=== PATIENT | female | born 1975 | race Caucasian/White ===

== ENCOUNTER 2016-09-23 18:23 | Emergency (ER) | payer SELFPAY ==
[~2016-09-23] VITALS: Ht 162.6 cm; Wt 68.0 kg
[2016-09-23 18:57] VITALS: BP 110/87
[2016-09-23] MEDS ORDERED: methylPREDNISolone SOD SUCC 125 MG/2 ML VL IM ONE (19:30)
[2016-09-23] MEDS ORDERED: IPRATROPIUM BROM 0.5 MG/2.5ML INH SOL NEB ONE (19:30)
[2016-09-23] MEDS ORDERED: ALBUTEROL SULF 2.5 MG/0.5ML(0.5%) NEB SOLN NEB ONE (19:30)
== END 2016-09-23 20:29 | disposition home or self-care (01) ==
LOC: ER 18:34
DX: J45.901 Unspecified asthma with (acute) exacerbation (principal); F17.210 Nicotine dependence, cigarettes, uncomplicated
CPT/HCPCS: 94640; 96372; 99283; J2930

== ENCOUNTER 2016-09-28 23:21 | Emergency (ER) | payer OTHER ==
[~2016-09-28] VITALS: Ht 162.6 cm; Wt 68.0 kg
[2016-09-28 23:27] VITALS: BP 114/80
== END 2016-09-29 00:53 | disposition left against medical advice (07) ==
LOC: ER 23:23
DX: R51 Headache (principal); Y09 Assault by unspecified means; Y99.9 Unspecified external cause status; Y92.89 Other specified places as the place of occurrence of the external cause; Z53.21 Procedure and treatment not carried out due to patient leaving prior to being seen by health care provider

== ENCOUNTER 2016-11-13 17:50 | Emergency (ER) | payer SELFPAY ==
[~2016-11-13] VITALS: Ht 172.7 cm; Wt 81.6 kg
[2016-11-13 17:58] VITALS: BP 120/80
== END 2016-11-13 21:29 | disposition left against medical advice (07) ==
LOC: EDBD 17:50 → ER 17:50
DX: R51 Headache (principal); M54.2 Cervicalgia; Z53.21 Procedure and treatment not carried out due to patient leaving prior to being seen by health care provider; Y08.89XA Assault by other specified means, initial encounter; Y93.89 Activity, other specified; Y99.8 Other external cause status; Y92.89 Other specified places as the place of occurrence of the external cause

== ENCOUNTER → 2019-04-22 | Emergency (ER) | payer MEDICAID | END | disposition left against medical advice (07) | LOC: ER 01:50 | DX: M54.5 Low back pain (principal); Z53.21 Procedure and treatment not carried out due to patient leaving prior to being seen by health care provider ==

== ENCOUNTER 2019-11-09 18:32 | Inpatient (IN) | payer MEDICAID ==
[~2019-11-09] VITALS: Ht 162.6 cm; Wt 59.0 kg
[2019-11-09 20:18] LABS: Basophils # (auto) 0.1 10 ^3/uL (0-0.2); Basophils % (auto) 1.3 % (0.0-2.0); Eosinophils # (auto) 0.2 10 ^3/uL (0-0.8); Hemoglobin 13.8 g/dL (12.2-16.2); Lymphocytes # (auto) 2.7 10 ^3/uL (0.4-5.4); Lymphocytes % (auto) 25.6 % (10.0-50.0); Mean Corpuscular Hemoglobin 29.6 pg (28.0-32.0); Mean Corpuscular Hgb Conc. 32.9 g/dL (32.0-36.0); Mean Corpuscular Volume 90.1 fL (80.0-100.0); Monocytes # (auto) 0.8 10 ^3/uL (0-1.3); Monocytes % (auto) 7.1 % (0.0-12.0); Neutrophils # (auto) 6.8 10 ^3/uL (1.6-8.6); Platelet Count (auto) 303 10^3/uL (140-450); Red Blood Cells 4.66 10^6/uL (4.0-5.20); Red Cell Distribution Width 14.8 % (11.8-14.3); White Blood Cell 10.6 10^3/uL (4.4-10.8)
[2019-11-09 20:32] LABS: INR 1.13 (0.9-1.15); Partial Thromboplastin Time 28.1 sec (23.64-32.05)
[2019-11-09 20:35] LABS: Albumin 2.7 g/dL (3.4-5.0); Calcium 8.2 mg/dL (8.5-10.1); Potassium 3.7 mmol/L (3.5-5.1)
[2019-11-09 20:42] LABS: BUN/Creatinine Ratio 22.1; Bilirubin, Total 0.4 mg/dL (0.2-1.0); Total Protein 6.1 g/dL (6.4-8.2)
[2019-11-09] MEDS ORDERED: IPRATROPIUM BROM 0.5 MG/2.5ML INH SOL NEB ONE (23:30)
[2019-11-09] MEDS ORDERED: FUROSEMIDE 20 MG/2 ML VIAL IV ONE (23:30)
[2019-11-09] MEDS ORDERED: ALBUTEROL SULF 2.5 MG/0.5ML(0.5%) NEB SOLN NEB ONE (23:30)
[2019-11-09] MEDS ORDERED: methylPREDNISolone SOD SUCC 125 MG/2 ML VL IV ONE (23:30)
[2019-11-10] MEDS ORDERED: SODIUM CHLORIDE 0.9% 1,000 ML IV SCH (00:08)
[2019-11-10] MEDS ORDERED: MORPHINE SULF INJ 2 MG/ML SYRINGE 1ML IV PRN (00:15)
[2019-11-10] MEDS ORDERED: HYDROcodone-ACET 5/325MG TAB PO PRN (00:15)
[2019-11-10] MEDS ORDERED: ALBUTEROL SULF 2.5 MG/0.5ML(0.5%) NEB SOLN NEB PRN (00:15)
[2019-11-10] MEDS ORDERED: ONDANSETRON HCL 4 MG/2 ML VIAL IV PRN (00:15)
[2019-11-10] MEDS ORDERED: DOCUSATE SOD 100 MG CAP PO PRN (00:15)
[2019-11-10] MEDS ORDERED: NITROGLYCERIN 0.4 MG SL TAB SL PRN (00:15)
[2019-11-10] MEDS ORDERED: DEXTROSE (50%) 50ML SYRG IV PRN (00:15)
[2019-11-10] MEDS ORDERED: MORPHINE SULFATE 4 MG/ML SYR/VIAL IV PRN (00:15)
[2019-11-10] MEDS ORDERED: IPRATROPIUM BROM 0.5 MG/2.5ML INH SOL NEB PRN (00:15)
[2019-11-10] MEDS ORDERED: ACETAMINOPHEN 325 MG TAB PO PRN (00:15)
[2019-11-10 00:22] VITALS: BP 91/64
[2019-11-10] MEDS ORDERED: SODIUM CHLORIDE 0.9% 1,000 ML IV ONE ×2 (01:00→03:30)
[2019-11-10] MEDS ORDERED: METOPROLOL TARTRATE 1MG/1ML-5ML VIAL IV ONE (03:08)
[2019-11-10] MEDS ORDERED: METOPROLOL TARTRATE 1MG/1ML-5ML VIAL IV SCH (03:30)
[2019-11-10] MEDS: ACCU-CHEK COMFORT CURVE STRIP VI SCH ×2 (04:00→08:25)
[2019-11-10] MEDS: InsuLIN REG 1unit/0.01ml Soln (100units/ml) SC SCH ×2 (04:00→08:26)
[2019-11-10] MEDS ORDERED: NOREPINEPHRINE 8 MG/250ML KIT 250 ML IV SCH (04:13)
[2019-11-10] MEDS ORDERED: NOREPINEPHRINE 8 MG/250ML KIT 250 ML IV ONE (04:15)
--- NOTE | 2019-11-10 08:15 | NUR ---
Respiratory note: PT REFUSED ABG TO BE DONE. EXPLAINED WHY IT WAS IMPORTANT TO DO AND WHAT RESULTS WOULD TELL US. PT STILL REFUSED AND WANTED TO LEAVE.
[2019-11-10 09:45] VITALS: BP 103/81
[2019-11-10] MEDS ORDERED: FUROSEMIDE 40 MG/4 ML VIAL IV SCH (10:00)
[2019-11-10] MEDS ORDERED: methylPREDNISolone SOD SUCC 125 MG/2 ML VL IV SCH (10:00)
== END 2019-11-10 11:25 | disposition left against medical advice (07) | DRG 198 ==
LOC: EDBD 18:32 → ER 18:32 → TELE 18:33
PROVIDERS: ADMIT Hospitalist; ATTEND Internal Medicine
DX: R07.89 Other chest pain (principal); I25.2 Old myocardial infarction; I50.43 Acute on chronic combined systolic (congestive) and diastolic (congestive) heart failure; I95.9 Hypotension, unspecified; I42.9 Cardiomyopathy, unspecified; J45.901 Unspecified asthma with (acute) exacerbation; I48.91 Unspecified atrial fibrillation; E11.9 Type 2 diabetes mellitus without complications; F17.210 Nicotine dependence, cigarettes, uncomplicated; Z53.29 Procedure and treatment not carried out because of patient's decision for other reasons; Z88.0 Allergy status to penicillin
CPT/HCPCS: 36415; 36600; 71045; 80053; 82140; 82805; 82962; 83880; 84443; 84484; 85025; 85379; 85610; 85730; 93005; 94640; 96361; 96374; 96375; G0378

== ENCOUNTER 2019-12-02 12:30 | Inpatient (IN) | payer MEDICAID, SELFPAY ==
[~2019-12-02] VITALS: Ht 165.1 cm; Wt 63.8 kg
[2019-12-02] MEDS ORDERED: MIDAZOLAM DRIP 50 mg/50mL 50 ML IV ONE (13:08)
[2019-12-02] MEDS ORDERED: SUCCINYLCHOLINE CHLORIDE 20 MG/ML 10ML VIAL IV ONE ×2 (13:09→13:45)
[2019-12-02] MEDS ORDERED: ETOMIDATE (2MG/ML) 20ML VIAL IV ONE ×2 (13:09→13:45)
[2019-12-02] MEDS ORDERED: LORazepam 2MG/ML-1ML VIAL ONE (13:12)
[2019-12-02] MEDS: MIDAZOLAM DRIP 50 mg/50mL 50 ML IV SCH (13:38)
[2019-12-02 13:40] LABS: Basophils # (auto) 0.1 10 ^3/uL (0-0.2); Basophils % (auto) 0.5 % (0.0-2.0); Eosinophils # (auto) 0 10 ^3/uL (0-0.8); Eosinophils % (auto) 0.3 % (0.0-7.0); Hematocrit 38.4 % (36.0-46.0); Hemoglobin 12.8 g/dL (12.2-16.2); Lymphocytes # (auto) 2.5 10 ^3/uL (0.4-5.4); Lymphocytes % (auto) 17.4 % (10.0-50.0); Mean Corpuscular Hemoglobin 30.2 pg (28.0-32.0); Mean Corpuscular Hgb Conc. 33.4 g/dL (32.0-36.0); Mean Corpuscular Volume 90.5 fL (80.0-100.0); Monocytes # (auto) 1.2 10 ^3/uL (0-1.3); Neutrophils # (auto) 10.6 10 ^3/uL (1.6-8.6); Neutrophils % (auto) 73.8 % (37.0-80.0); Platelet Count (auto) 221 10^3/uL (140-450); Red Blood Cells 4.25 10^6/uL (4.0-5.20); White Blood Cell 14.4 10^3/uL (4.4-10.8)
[2019-12-02 13:52] LABS: Albumin 2.4 g/dL (3.4-5.0); Calcium 8.8 mg/dL (8.5-10.1); Potassium 4.1 mmol/L (3.5-5.1)
[2019-12-02 13:55] LABS: Lactic Acid w/Reflex 2.2 mmol/L (0.4-2.0)
[2019-12-02 13:56] LABS: BUN/Creatinine Ratio 19.3; Bilirubin, Total 1.8 mg/dL (0.2-1.0); Total Protein 6.4 g/dL (6.4-8.2)
[2019-12-02] MEDS ORDERED: AZITHROMYCIN 500MG/ 250ML 250 ML IV ONE (15:00)
[2019-12-02] MEDS ORDERED: ACETAMINOPHEN 650 MG RECT SUPP PR ONE (15:00)
[2019-12-02] MEDS ORDERED: levoFLOXacin 500MG 100 ML IV ONE (15:00)
[2019-12-02] MEDS ORDERED: MIDAZOLAM DRIP 50 mg/50mL 50 ML IV SCH (15:08)
[2019-12-02] MEDS ORDERED: fentaNYL Drip 2500mCg/250mlNS 250 ML IV ONE (15:11)
[2019-12-02] MEDS ORDERED: ACETAMINOPHEN 500 MG TAB PO PRN (15:15)
[2019-12-02] MEDS ORDERED: MORPHINE SULF INJ 2 MG/ML SYRINGE 1ML IV PRN (15:15)
[2019-12-02] MEDS ORDERED: NITROGLYCERIN 0.4 MG SL TAB SL PRN (15:15)
[2019-12-02] MEDS ORDERED: DOXYCYCLINE 100MG/250ML 250 ML IV SCH (15:30)
[2019-12-02 15:45] VITALS: BP 121/96
[2019-12-02 15:45] LABS: Magnesium 1.9 mg/dL (1.6-2.6)
[2019-12-02 15:53] LABS: INR 1.2 (0.9-1.15); Partial Thromboplastin Time 26.2 sec (23.64-32.05)
[2019-12-02 15:54] LABS: Lactate Dehydrogenase 643 U/L (84-246)
[2019-12-02 16:02] LABS: CRP High Sensitivity > 19.0 mg/dL (< 0.3)
[2019-12-02] MEDS: fentaNYL Drip 2500mCg/250mlNS 250 ML IV SCH (16:23)
[2019-12-02 16:25] VITALS: BP 103/52
[2019-12-02 17:09] LABS: Urine Amorphous Crystal MANY /hpf (None Seen); Urine Bacteria NONE SEEN /hpf (None Seen); Urine Blood Negative /uL (Negative); Urine Mucus FEW (None Seen); Urine Specific Gravity 1.023 (1.001-1.035)
[2019-12-02 17:10] LABS: Urine WBC 0-1 /hpf (0 - 5)
[2019-12-02] MEDS: cefTRIAXone 1GM/50ML D5W 50 ML IV SCH (17:41)
[2019-12-02] MEDS: NOREPINEPHRINE 8 MG/250ML KIT 250 ML IV SCH (17:43)
[2019-12-02] MEDS ORDERED: ADENOSINE 6 MG/2 ML INJ IV ONE ×2 (18:34→18:45)
[2019-12-02 18:55] VITALS: BP 91/67
[2019-12-02 20:30] VITALS: BP 108/78
[2019-12-02] MEDS: LEVALBUTEROL HCL 1.25 MG/3 ML NEB NEB SCH (21:48)
[2019-12-02] MEDS: IPRATROPIUM BROM 0.5 MG/2.5ML INH SOL NEB SCH (21:48)
[2019-12-02 21:58] VITALS: BP 93/68
[2019-12-02] MEDS ORDERED: ALBUTEROL SULF HFA 90MCG INH 200DOSE IN SCH (22:00)
[2019-12-02 23:55] VITALS: BP 104/81
[2019-12-03] VITALS (65 sets, daily range): BP systolic 42–157; BP diastolic 56–134
[2019-12-03] MEDS: IPRATROPIUM BROM 0.5 MG/2.5ML INH SOL NEB SCH ×2 (08:04→22:52)
[2019-12-03] MEDS: LEVALBUTEROL HCL 1.25 MG/3 ML NEB NEB SCH ×2 (08:04→22:52)
[2019-12-03] MEDS: NOREPINEPHRINE 8 MG/250ML KIT 250 ML IV SCH (08:30)
[2019-12-03] MEDS: fentaNYL Drip 2500mCg/250mlNS 250 ML IV SCH (08:30)
[2019-12-03] MEDS: MIDAZOLAM DRIP 50 mg/50mL 50 ML IV SCH (08:30)
[2019-12-03 09:05] LABS: Basophils # (auto) 0 10 ^3/uL (0-0.2); Basophils % (auto) 0.3 % (0.0-2.0); Eosinophils # (auto) 0.5 10 ^3/uL (0-0.8); Eosinophils % (auto) 3.3 % (0.0-7.0); Hematocrit 38.8 % (36.0-46.0); Hemoglobin 12.4 g/dL (12.2-16.2); Lymphocytes # (auto) 3.2 10 ^3/uL (0.4-5.4); Lymphocytes % (auto) 23.3 % (10.0-50.0); Mean Corpuscular Hemoglobin 28.9 pg (28.0-32.0); Mean Corpuscular Hgb Conc. 31.9 g/dL (32.0-36.0); Mean Corpuscular Volume 90.5 fL (80.0-100.0); Monocytes # (auto) 0.9 10 ^3/uL (0-1.3); Monocytes % (auto) 6.3 % (0.0-12.0); Neutrophils # (auto) 9.3 10 ^3/uL (1.6-8.6); Neutrophils % (auto) 66.8 % (37.0-80.0); Platelet Count (auto) 217 10^3/uL (140-450); Red Blood Cells 4.29 10^6/uL (4.0-5.20); Red Cell Distribution Width 15.6 % (11.8-14.3); White Blood Cell 13.9 10^3/uL (4.4-10.8)
[2019-12-03] MEDS: cefTRIAXone 1GM/50ML D5W 50 ML IV SCH (09:13)
[2019-12-03 09:21] LABS: Albumin 2.1 g/dL (3.4-5.0); Calcium 8.7 mg/dL (8.5-10.1); Potassium 4.1 mmol/L (3.5-5.1)
[2019-12-03 09:29] LABS: Bilirubin, Total 1.2 mg/dL (0.2-1.0); Total Protein 6.2 g/dL (6.4-8.2)
[2019-12-03] MEDS ORDERED: AZITHROMYCIN DIHYD 500 MG VIAL IV SCH (10:00)
[2019-12-03] MEDS ORDERED: ASCORBIC ACID 500 MG TAB PO SCH (10:00)
[2019-12-03] MEDS: ENOXAPARIN SOD 40 MG/0.4 ML SYRINGE SC SCH (10:00)
[2019-12-03] MEDS ORDERED: AZITHROMYCIN 500MG/ 250ML 250 ML IV SCH (10:00)
[2019-12-03] MEDS: ASCORBIC ACID 500 MG TAB PO SCH (10:57)
[2019-12-03] MEDS ORDERED: VANCOMYCIN PER PHARMACY 0 MG IV SCH (11:00)
[2019-12-03] MEDS ORDERED: AMIODARONE HCL (50 MG/ ML) 3 ML VIAL IV ONE (11:04)
[2019-12-03] MEDS ORDERED: AMIODARONE 450mg/250ml AE 250 ML IV ONE (11:05)
[2019-12-03] MEDS ORDERED: AMIODARONE 450mg/250ml AE 250 ML IV SCH ×2 (11:11→17:11)
[2019-12-03] MEDS ORDERED: AMIODARONE HCL 150 MG in D5W 5% 100 ML IV ONE (11:15)
[2019-12-03] MEDS: ZINC SULFATE 220mg CAP or TAB PO SCH (11:33)
[2019-12-03] MEDS ORDERED: EPINEPHrine HCL 250 ML IV ONE (12:30)
[2019-12-03] MEDS ORDERED: MAGNESIUM SULFATE 1GM/100ML 100 ML IV ONE (15:00)
[2019-12-03] MEDS: VANCOMYCIN 1GM/250ML 250 ML IV SCH (15:10)
[2019-12-03] MEDS ORDERED: MEROPENEM 1GM IVPB 100 ML IV ONE (15:15)
[2019-12-03] MEDS ORDERED: ASPirin-EC 81 mg tab PO ONE (15:15)
[2019-12-03] MEDS ORDERED: FUROSEMIDE 20 MG/2 ML VIAL IV ONE (15:15)
[2019-12-03] MEDS ORDERED: CHOLECALCIFEROL (VITD3) 1,000IU=25mCg TAB PO ONE (15:15)
[2019-12-03] MEDS: NOREPINEPHRINE BITARTRATE 16 MG in SODIUM CHL 0.9% 250 ML IV SCH (16:46)
[2019-12-03] MEDS: DIGOXIN (250MCG/ML) 2 ML AMPULE IV ONE ×2 (18:37→18:41)
[2019-12-03] MEDS ORDERED: DIGOXIN (250MCG/ML) 2 ML AMPULE IV ONE (19:00)
[2019-12-03] MEDS: MEROPENEM 1GM IVPB 100 ML IV SCH (22:00)
[2019-12-03 22:35] LABS: Lactic Acid w/Reflex 3.7 mmol/L (0.4-2.0)
[2019-12-03 22:37] LABS: Albumin 1.9 g/dL (3.4-5.0); BUN/Creatinine Ratio 17.6; Calcium 7.3 mg/dL (8.5-10.1); Magnesium 1.7 mg/dL (1.6-2.6); Potassium 4.4 mmol/L (3.5-5.1)
[2019-12-03 22:39] LABS: INR 1.46 (0.9-1.15); Partial Thromboplastin Time 27.1 sec (23.64-32.05)
[2019-12-03 22:45] LABS: Bilirubin, Total 1.7 mg/dL (0.2-1.0); Total Protein 5.2 g/dL (6.4-8.2)
[2019-12-04] VITALS (105 sets, daily range): BP systolic 77–161; BP diastolic 47–103
[2019-12-04] MEDS: VANCOMYCIN 1GM/250ML 250 ML IV SCH ×2 (00:30→12:29)
[2019-12-04 00:51] LABS: Basophils # (auto) 0.1 10 ^3/uL (0-0.2); Basophils % (auto) 0.5 % (0.0-2.0); Eosinophils # (auto) 0.3 10 ^3/uL (0-0.8); Eosinophils % (auto) 1.6 % (0.0-7.0); Hematocrit 36.6 % (36.0-46.0); Hemoglobin 11.6 g/dL (12.2-16.2); Lymphocytes # (auto) 3.4 10 ^3/uL (0.4-5.4); Lymphocytes % (auto) 19.5 % (10.0-50.0); Mean Corpuscular Hemoglobin 28.5 pg (28.0-32.0); Mean Corpuscular Hgb Conc. 31.6 g/dL (32.0-36.0); Mean Corpuscular Volume 90.4 fL (80.0-100.0); Monocytes % (auto) 11.1 % (0.0-12.0); Neutrophils # (auto) 11.9 10 ^3/uL (1.6-8.6); Neutrophils % (auto) 67.3 % (37.0-80.0); Nucleated Red Blood Cells % 0.1 %; Platelet Count (auto) 202 10^3/uL (140-450); Red Blood Cells 4.05 10^6/uL (4.0-5.20); Red Cell Distribution Width 15.4 % (11.8-14.3); White Blood Cell 17.7 10^3/uL (4.4-10.8)
[2019-12-04] MEDS ORDERED: AMIO200T33 PO (01:54)
[2019-12-04] MEDS ORDERED: ENAL2.5T2 PO (01:54)
[2019-12-04] MEDS ORDERED: PANT40TA2 PO (01:54)
[2019-12-04] MEDS ORDERED: NITR0.4S29 SL (01:54)
[2019-12-04] MEDS ORDERED: POTA-220 PO (01:54)
[2019-12-04] MEDS ORDERED: METO25TA93 PO (01:54)
[2019-12-04] MEDS ORDERED: CLOP75TA28 PO (01:54)
[2019-12-04] MEDS ORDERED: ATOR20TA50 PO (01:54)
[2019-12-04] MEDS ORDERED: FURO40TA4 PO (01:54)
[2019-12-04] MEDS ORDERED: IPRAAER6 IN (01:54)
[2019-12-04] MEDS ORDERED: GLIP5TAB12 PO (01:54)
[2019-12-04] MEDS ORDERED: AMIODARONE HCL 900 MG IV ONE (02:18)
[2019-12-04] MEDS ORDERED: MAGNESIUM SULFATE 1GM/100ML 200 ML IV ONE (02:31)
[2019-12-04] MEDS: MAGNESIUM SULFATE 1GM/100ML 100 ML IV SCH ×2 (02:40→03:30)
[2019-12-04 04:31] LABS: Basophils # (auto) 0.1 10 ^3/uL (0-0.2); Basophils % (auto) 0.8 % (0.0-2.0); Eosinophils # (auto) 0.3 10 ^3/uL (0-0.8); Hematocrit 39.3 % (36.0-46.0); Hemoglobin 12.6 g/dL (12.2-16.2); Lymphocytes # (auto) 2.4 10 ^3/uL (0.4-5.4); Lymphocytes % (auto) 15.5 % (10.0-50.0); Mean Corpuscular Hemoglobin 28.7 pg (28.0-32.0); Mean Corpuscular Hgb Conc. 31.9 g/dL (32.0-36.0); Mean Corpuscular Volume 90.1 fL (80.0-100.0); Monocytes # (auto) 1.5 10 ^3/uL (0-1.3); Monocytes % (auto) 9.6 % (0.0-12.0); Neutrophils # (auto) 11.2 10 ^3/uL (1.6-8.6); Neutrophils % (auto) 72.1 % (37.0-80.0); Nucleated Red Blood Cells % 0.1 %; Platelet Count (auto) 152 10^3/uL (140-450); Red Blood Cells 4.37 10^6/uL (4.0-5.20); Red Cell Distribution Width 15.3 % (11.8-14.3); White Blood Cell 15.6 10^3/uL (4.4-10.8)
[2019-12-04 04:32] LABS: Albumin 1.7 g/dL (3.4-5.0); Calcium 7.7 mg/dL (8.5-10.1); Magnesium 2.3 mg/dL (1.6-2.6); Potassium 3.5 mmol/L (3.5-5.1)
[2019-12-04 04:36] LABS: BUN/Creatinine Ratio 12.5; Bilirubin, Total 2.2 mg/dL (0.2-1.0); Total Protein 5.7 g/dL (6.4-8.2)
[2019-12-04] MEDS: LEVALBUTEROL HCL 1.25 MG/3 ML NEB NEB SCH ×3 (07:01→22:08)
[2019-12-04] MEDS: IPRATROPIUM BROM 0.5 MG/2.5ML INH SOL NEB SCH ×3 (07:01→22:08)
[2019-12-04] MEDS ORDERED: FUROSEMIDE 20 MG/2 ML VIAL IV SCH (10:00)
[2019-12-04] MEDS ORDERED: AZITHROMYCIN 500MG/ 250ML 250 ML IV SCH (10:00)
[2019-12-04] MEDS: PANTOPRAZOLE 40 MG/10 ML VIAL INJ IV SCH (10:09)
[2019-12-04] MEDS: MEROPENEM 1GM IVPB 100 ML IV SCH ×2 (10:09→22:00)
[2019-12-04] MEDS: ASCORBIC ACID 500 MG TAB PO SCH (10:10)
[2019-12-04] MEDS: ENOXAPARIN SOD 40 MG/0.4 ML SYRINGE SC SCH (10:10)
[2019-12-04] MEDS: CHOLECALCIFEROL (VITD3) 1,000IU=25mCg TAB PO SCH (10:10)
[2019-12-04] MEDS: ASPirin-EC 81 mg tab PO SCH (10:11)
[2019-12-04] MEDS: ZINC SULFATE 220mg CAP or TAB PO SCH (10:12)
[2019-12-04] MEDS: fentaNYL Drip 2500mCg/250mlNS 250 ML IV SCH (10:29)
[2019-12-04] MEDS: NOREPINEPHRINE BITARTRATE 16 MG in SODIUM CHL 0.9% 250 ML IV SCH (10:35)
[2019-12-04] MEDS: MIDAZOLAM DRIP 50 mg/50mL 50 ML IV SCH ×3 (11:18→18:51)
[2019-12-04] MEDS ORDERED: POTASSIUM EFFERVESENT TAB 25 MEQ GT ONE (12:00)
[2019-12-04] MEDS ORDERED: FUROSEMIDE 20 MG/2 ML VIAL IV ONE (12:00)
[2019-12-04] MEDS ORDERED: SODIUM BICARBONATE 50ML VIAL 50 ML in SOD CHL 0.45% 1,000 ML IV ONE (12:15)
[2019-12-04 13:33] LABS: Amphetamine Screen, Urine NEGATIVE (NEGATIVE); Barbiturate Scree,Urine NEGATIVE (NEGATIVE); Benzodiazephine Screen, Urine POSITIVE (NEGATIVE); Cannabinoid Screen, Urine NEGATIVE (NEGATIVE); Cocaine Screen, Urine NEGATIVE (NEGATIVE); Opiate Scree,Urine NEGATIVE (NEGATIVE); Phencyclidine Screen, Urine NEGATIVE (NEGATIVE)
[2019-12-04] MEDS ORDERED: IOHEXOL 350 MG/ML 100ML IJ ONE (13:38)
[2019-12-04 13:52] LABS: Hepatitis B Surface Antibody Negative
[2019-12-04 14:31] LABS: Hepatitis A Total Antibody Negative
[2019-12-04] MEDS: ACETAMINOPHEN 650 mg PER 20 mL UD GT PRN (14:31)
[2019-12-04] MEDS ORDERED: PROPOFOL 100 ML IV ONE (14:35)
[2019-12-04] MEDS: PROPOFOL 100 ML IV SCH (15:15)
[2019-12-04 16:04] LABS: Hepatitis B Core Total AB Negative
[2019-12-04 16:05] LABS: Hepatitis B Surface Antigen Negative (Negative); Hepatitis C Antibody Negative (Negative)
[2019-12-04] MEDS: FUROSEMIDE 20 MG/2 ML VIAL IV SCH (18:43)
[2019-12-04] MEDS: ATORVASTATIN 20 MG TAB PO SCH (22:00)
[2019-12-04] MEDS ORDERED: AMIODARONE 450mg/250ml AE 250 ML IV SCH (22:25)
[2019-12-05] VITALS (104 sets, daily range): BP systolic 75–151; BP diastolic 36–99
[2019-12-05 03:52] LABS: Basophils # (auto) 0.1 10 ^3/uL (0-0.2); Basophils % (auto) 0.6 % (0.0-2.0); Eosinophils # (auto) 0.1 10 ^3/uL (0-0.8); Eosinophils % (auto) 0.5 % (0.0-7.0); Hematocrit 38.6 % (36.0-46.0); Hemoglobin 12.7 g/dL (12.2-16.2); Lymphocytes # (auto) 1.2 10 ^3/uL (0.4-5.4); Mean Corpuscular Hemoglobin 29.2 pg (28.0-32.0); Mean Corpuscular Hgb Conc. 32.8 g/dL (32.0-36.0); Monocytes # (auto) 1.4 10 ^3/uL (0-1.3); Monocytes % (auto) 8.5 % (0.0-12.0); Neutrophils # (auto) 14.3 10 ^3/uL (1.6-8.6); Neutrophils % (auto) 83.4 % (37.0-80.0); Platelet Count (auto) 170 10^3/uL (140-450); Red Blood Cells 4.34 10^6/uL (4.0-5.20); Red Cell Distribution Width 15.6 % (11.8-14.3); White Blood Cell 17.1 10^3/uL (4.4-10.8)
[2019-12-05 04:15] LABS: Albumin 1.6 g/dL (3.4-5.0); Calcium 7.7 mg/dL (8.5-10.1); Magnesium 1.5 mg/dL (1.6-2.6); Potassium 3.6 mmol/L (3.5-5.1)
[2019-12-05 04:23] LABS: BUN/Creatinine Ratio 12.3; Bilirubin, Total 4.6 mg/dL (0.2-1.0); Total Protein 5.7 g/dL (6.4-8.2)
[2019-12-05] MEDS: FUROSEMIDE 20 MG/2 ML VIAL IV SCH ×2 (06:00→19:03)
[2019-12-05] MEDS ORDERED: FUROSEMIDE INJECTION 10 ML ONE (06:31)
[2019-12-05] MEDS: LEVALBUTEROL HCL 1.25 MG/3 ML NEB NEB SCH ×3 (06:58→22:01)
[2019-12-05] MEDS: IPRATROPIUM BROM 0.5 MG/2.5ML INH SOL NEB SCH ×3 (06:58→22:01)
[2019-12-05] MEDS: fentaNYL Drip 2500mCg/250mlNS 250 ML IV SCH (09:25)
[2019-12-05] MEDS: ENOXAPARIN SOD 40 MG/0.4 ML SYRINGE SC SCH (09:59)
[2019-12-05] MEDS: PANTOPRAZOLE 40 MG/10 ML VIAL INJ IV SCH (09:59)
[2019-12-05] MEDS: MEROPENEM 1GM IVPB 100 ML IV SCH ×2 (09:59→18:20)
[2019-12-05] MEDS: ASPirin-EC 81 mg tab PO SCH (09:59)
[2019-12-05] MEDS: CHOLECALCIFEROL (VITD3) 1,000IU=25mCg TAB PO SCH (10:00)
[2019-12-05] MEDS: ASCORBIC ACID 500 MG TAB PO SCH (10:00)
[2019-12-05] MEDS ORDERED: MAGNESIUM SULFATE 1GM/100ML 100 ML IV ONE ×2 (10:45→13:30)
[2019-12-05] MEDS: PROPOFOL 100 ML IV SCH (12:01)
[2019-12-05] MEDS: VANCOMYCIN 1GM/250ML 250 ML IV SCH ×3 (12:11→22:00)
[2019-12-05] MEDS ORDERED: TPN PER PHARMACY 0 ML IV SCH (12:45)
[2019-12-05] MEDS: NOREPINEPHRINE BITARTRATE 16 MG in SODIUM CHL 0.9% 250 ML IV SCH (16:37)
[2019-12-05] MEDS: ACETAMINOPHEN 650 mg PER 20 mL UD GT PRN (16:58)
[2019-12-05] MEDS ORDERED: AMIODARONE 450mg/250ml AE 250 ML IV ONE (18:30)
[2019-12-05 18:31] LABS: Magnesium 1.9 mg/dL (1.6-2.6); Potassium 3.3 mmol/L (3.5-5.1)
[2019-12-05] MEDS: MAGNESIUM SULFATE 1GM/100ML 100 ML IV SCH ×2 (18:50→20:05)
[2019-12-05] MEDS: POTASSIUM CHL 20MEQ/100ML 100 ML IV SCH ×2 (19:00→20:05)
[2019-12-05] MEDS ORDERED: POTASSIUM CHL 20MEQ/100ML 200 ML IV ONE (19:02)
[2019-12-05] MEDS ORDERED: TPN PER PHARMACY IV NR ×8 (20:00)
[2019-12-05] MEDS ORDERED: AMIODARONE HCL 200 MG TAB PO SCH (22:00)
[2019-12-05] MEDS: ATORVASTATIN 20 MG TAB PO SCH (22:00)
[2019-12-06] VITALS (92 sets, daily range): BP systolic 83–133; BP diastolic 47–101
[2019-12-06] MEDS ORDERED: DEXTROSE (50%) 50ML SYRG IV SCH
[2019-12-06] MEDS: MEROPENEM 1GM IVPB 100 ML IV SCH ×3 (02:00→16:58)
[2019-12-06 04:12] LABS: Basophils # (auto) 0 10 ^3/uL (0-0.2); Basophils % (auto) 0.2 % (0.0-2.0); Eosinophils # (auto) 0 10 ^3/uL (0-0.8); Eosinophils % (auto) 0.1 % (0.0-7.0); Hematocrit 44.7 % (36.0-46.0); Hemoglobin 14.9 g/dL (12.2-16.2); Lymphocytes # (auto) 0.8 10 ^3/uL (0.4-5.4); Mean Corpuscular Hemoglobin 29.4 pg (28.0-32.0); Mean Corpuscular Hgb Conc. 33.4 g/dL (32.0-36.0); Monocytes # (auto) 0.6 10 ^3/uL (0-1.3); Monocytes % (auto) 4.6 % (0.0-12.0); Neutrophils # (auto) 12.2 10 ^3/uL (1.6-8.6); Neutrophils % (auto) 89.1 % (37.0-80.0); Nucleated Red Blood Cells % 0.1 %; Platelet Count (auto) 160 10^3/uL (140-450); Red Blood Cells 5.07 10^6/uL (4.0-5.20); White Blood Cell 13.7 10^3/uL (4.4-10.8)
[2019-12-06 04:31] LABS: Albumin 1.6 g/dL (3.4-5.0); BUN/Creatinine Ratio 14.1; Calcium 7.5 mg/dL (8.5-10.1); Magnesium 2.1 mg/dL (1.6-2.6)
[2019-12-06 04:36] LABS: Bilirubin, Total 4.4 mg/dL (0.2-1.0); Total Protein 5.8 g/dL (6.4-8.2)
[2019-12-06 04:43] LABS: Phosphorus 1.6 mg/dL (2.5-4.90); Pre Albumin 4.2 mg/dL (20.0-40.0)
[2019-12-06 04:54] LABS: Potassium 2.9 mmol/L (3.5-5.1)
[2019-12-06] MEDS ORDERED: POTASSIUM CHL 20MEQ/100ML 100 ML IV ONE ×3 (05:12→08:31)
[2019-12-06] MEDS: FUROSEMIDE 20 MG/2 ML VIAL IV SCH ×2 (06:00→17:40)
[2019-12-06] MEDS: ACCU-CHEK COMFORT CURVE STRIP VI SCH ×4 (06:00→17:25)
[2019-12-06] MEDS: IPRATROPIUM BROM 0.5 MG/2.5ML INH SOL NEB SCH ×3 (06:10→22:32)
[2019-12-06] MEDS: LEVALBUTEROL HCL 1.25 MG/3 ML NEB NEB SCH ×3 (06:10→22:32)
[2019-12-06] MEDS: InsuLIN REG 1unit/0.01ml Soln (100units/ml) SC SCH ×4 (06:30→17:26)
[2019-12-06] MEDS ORDERED: AMIODARONE 450mg/250ml AE 250 ML IV ONE ×3 (06:37→21:41)
[2019-12-06] MEDS ORDERED: MAGNESIUM SULFATE 1GM/100ML 100 ML IV ONE (08:30)
[2019-12-06] MEDS: VANCOMYCIN 1GM/250ML 250 ML IV SCH ×2 (09:03→18:46)
[2019-12-06] MEDS: ASPirin-EC 81 mg tab PO SCH (09:42)
[2019-12-06] MEDS: ENOXAPARIN SOD 40 MG/0.4 ML SYRINGE SC SCH (09:43)
[2019-12-06] MEDS: PANTOPRAZOLE 40 MG/10 ML VIAL INJ IV SCH (09:43)
[2019-12-06] MEDS: ASCORBIC ACID 500 MG TAB PO SCH (09:43)
[2019-12-06] MEDS: LIDOCAINE 4MG/ML IV SOLN 500 ML IV SCH (09:44)
[2019-12-06] MEDS: CHOLECALCIFEROL (VITD3) 1,000IU=25mCg TAB PO SCH (09:57)
[2019-12-06] MEDS: MIDAZOLAM DRIP 50 mg/50mL 50 ML IV SCH ×2 (09:58→18:46)
[2019-12-06] MEDS: POTASSIUM CHL 20MEQ/100ML 100 ML IV SCH ×6 (10:00→18:46)
[2019-12-06] MEDS: fentaNYL Drip 2500mCg/250mlNS 250 ML IV SCH ×2 (10:00→13:16)
[2019-12-06] MEDS ORDERED: SODIUM PHOSPH 24MEQ(18MMOL) IN NS 100 ML IV ONE (11:00)
[2019-12-06] MEDS ORDERED: AMIODARONE 450mg/250ml AE 250 ML IV SCH (13:14)
[2019-12-06] MEDS: PROPOFOL 100 ML IV SCH (14:37)
[2019-12-06] MEDS: NOREPINEPHRINE BITARTRATE 16 MG in SODIUM CHL 0.9% 250 ML IV SCH (16:00)
[2019-12-06] MEDS ORDERED: TPN PER PHARMACY IV NR ×9 (20:00)
[2019-12-06] MEDS: ATORVASTATIN 20 MG TAB PO SCH (22:09)
[2019-12-07] VITALS (95 sets, daily range): BP systolic 70–135; BP diastolic 37–91
[2019-12-07] MEDS: VANCOMYCIN 1GM/250ML 250 ML IV SCH ×3 (02:01→18:21)
[2019-12-07] MEDS: MEROPENEM 1GM IVPB 100 ML IV SCH ×3 (02:01→17:38)
[2019-12-07] MEDS ORDERED: NOREPINEPHRINE 8 MG/250ML KIT 250 ML IV ONE (04:07)
[2019-12-07 04:38] LABS: Basophils # (auto) 0 10 ^3/uL (0-0.2); Basophils % (auto) 0.2 % (0.0-2.0); Eosinophils # (auto) 0.4 10 ^3/uL (0-0.8); Eosinophils % (auto) 2.3 % (0.0-7.0); Hematocrit 36.3 % (36.0-46.0); Hemoglobin 11.8 g/dL (12.2-16.2); Lymphocytes # (auto) 1.8 10 ^3/uL (0.4-5.4); Lymphocytes % (auto) 10.8 % (10.0-50.0); Mean Corpuscular Hemoglobin 29.5 pg (28.0-32.0); Mean Corpuscular Hgb Conc. 32.6 g/dL (32.0-36.0); Mean Corpuscular Volume 90.6 fL (80.0-100.0); Monocytes # (auto) 1.7 10 ^3/uL (0-1.3); Monocytes % (auto) 9.7 % (0.0-12.0); Neutrophils # (auto) 13.1 10 ^3/uL (1.6-8.6); Nucleated Red Blood Cells % 0.1 %; Platelet Count (auto) 210 10^3/uL (140-450); Red Blood Cells 4.01 10^6/uL (4.0-5.20); White Blood Cell 17.1 10^3/uL (4.4-10.8)
[2019-12-07 04:42] LABS: Albumin 1.3 g/dL (3.4-5.0); Calcium 7.7 mg/dL (8.5-10.1); Magnesium 2.4 mg/dL (1.6-2.6); Potassium 4.1 mmol/L (3.5-5.1)
[2019-12-07 04:50] LABS: BUN/Creatinine Ratio 24.1; Bilirubin, Total 2.7 mg/dL (0.2-1.0); Phosphorus 3.9 mg/dL (2.5-4.90); Total Protein 5.3 g/dL (6.4-8.2)
[2019-12-07] MEDS: InsuLIN REG 1unit/0.01ml Soln (100units/ml) SC SCH ×4 (06:00→17:34)
[2019-12-07] MEDS: ACCU-CHEK COMFORT CURVE STRIP VI SCH ×4 (06:00→17:31)
[2019-12-07] MEDS: FUROSEMIDE 20 MG/2 ML VIAL IV SCH ×2 (06:00→18:21)
[2019-12-07] MEDS ORDERED: PHENYLEPHRINE IV 250 ML IV ONE ×3 (06:03→11:54)
[2019-12-07] MEDS: LEVALBUTEROL HCL 1.25 MG/3 ML NEB NEB SCH ×3 (06:10→21:56)
[2019-12-07] MEDS: IPRATROPIUM BROM 0.5 MG/2.5ML INH SOL NEB SCH ×3 (06:11→21:56)
[2019-12-07] MEDS ORDERED: AMIODARONE 450mg/250ml AE 250 ML IV ONE (06:55)
[2019-12-07] MEDS: LIDOCAINE 4MG/ML IV SOLN 500 ML IV SCH (09:30)
[2019-12-07] MEDS: PANTOPRAZOLE 40 MG/10 ML VIAL INJ IV SCH (09:39)
[2019-12-07] MEDS: ASPirin-EC 81 mg tab PO SCH (09:39)
[2019-12-07] MEDS: CHOLECALCIFEROL (VITD3) 1,000IU=25mCg TAB PO SCH (09:40)
[2019-12-07] MEDS: ENOXAPARIN SOD 40 MG/0.4 ML SYRINGE SC SCH (09:40)
[2019-12-07] MEDS: ASCORBIC ACID 500 MG TAB PO SCH (09:40)
[2019-12-07] MEDS: PHENYLEPHRINE IV 250 ML IV SCH (13:02)
[2019-12-07] MEDS: PROPOFOL 100 ML IV SCH (14:37)
[2019-12-07] MEDS: fentaNYL Drip 2500mCg/250mlNS 250 ML IV SCH (15:08)
[2019-12-07] MEDS: NOREPINEPHRINE BITARTRATE 16 MG in SODIUM CHL 0.9% 250 ML IV SCH ×2 (17:16→23:01)
[2019-12-07] MEDS ORDERED: VANCOMYCIN 1GM/250ML 250 ML IV ONE (19:00)
[2019-12-07] MEDS: AMIODARONE 450mg/250ml AE 250 ML IV SCH (19:25)
[2019-12-07] MEDS ORDERED: TPN PER PHARMACY IV NR ×9 (20:00)
[2019-12-07] MEDS: MUPIROCIN 2% OINT 15gm or 22gm EACHNOSTRI SCH (21:53)
[2019-12-07] MEDS: ATORVASTATIN 20 MG TAB PO SCH (22:21)
[2019-12-08] VITALS (105 sets, daily range): BP systolic 83–119; BP diastolic 45–81
[2019-12-08] MEDS: InsuLIN REG 1unit/0.01ml Soln (100units/ml) SC SCH ×4 (00:22→18:00)
[2019-12-08] MEDS: MEROPENEM 1GM IVPB 100 ML IV SCH ×3 (01:30→18:25)
[2019-12-08] MEDS: VANCOMYCIN 1GM/250ML 250 ML IV SCH ×3 (02:27→21:30)
[2019-12-08 04:56] LABS: Basophils # (auto) 0 10 ^3/uL (0-0.2); Basophils % (auto) 0.2 % (0.0-2.0); Eosinophils # (auto) 0.6 10 ^3/uL (0-0.8); Eosinophils % (auto) 5.5 % (0.0-7.0); Hemoglobin 11.2 g/dL (12.2-16.2); Lymphocytes # (auto) 1.5 10 ^3/uL (0.4-5.4); Lymphocytes % (auto) 13.5 % (10.0-50.0); Mean Corpuscular Hemoglobin 29.6 pg (28.0-32.0); Mean Corpuscular Hgb Conc. 32.8 g/dL (32.0-36.0); Mean Corpuscular Volume 90.3 fL (80.0-100.0); Monocytes # (auto) 1.1 10 ^3/uL (0-1.3); Monocytes % (auto) 9.9 % (0.0-12.0); Neutrophils % (auto) 70.9 % (37.0-80.0); Platelet Count (auto) 177 10^3/uL (140-450); Red Blood Cells 3.77 10^6/uL (4.0-5.20); Red Cell Distribution Width 15.7 % (11.8-14.3); White Blood Cell 11.4 10^3/uL (4.4-10.8)
[2019-12-08 05:09] LABS: Potassium 4.3 mmol/L (3.5-5.1)
[2019-12-08 05:21] LABS: Albumin 1.3 g/dL (3.4-5.0); BUN/Creatinine Ratio 33.3; Calcium 7.4 mg/dL (8.5-10.1); Magnesium 1.9 mg/dL (1.6-2.6); Phosphorus 2.3 mg/dL (2.5-4.90); Total Protein 5.3 g/dL (6.4-8.2)
[2019-12-08] MEDS: FUROSEMIDE 20 MG/2 ML VIAL IV SCH ×2 (05:42→18:25)
[2019-12-08] MEDS: ACCU-CHEK COMFORT CURVE STRIP VI SCH ×4 (05:54→18:23)
[2019-12-08] MEDS: IPRATROPIUM BROM 0.5 MG/2.5ML INH SOL NEB SCH ×3 (06:10→22:47)
[2019-12-08] MEDS: LEVALBUTEROL HCL 1.25 MG/3 ML NEB NEB SCH ×3 (06:10→22:47)
[2019-12-08] MEDS ORDERED: SODIUM PHOSPH 24MEQ(18MMOL) IN NS 100 ML IV ONE (08:00)
[2019-12-08] MEDS: LIDOCAINE 4MG/ML IV SOLN 500 ML IV SCH (09:30)
[2019-12-08] MEDS: PHENYLEPHRINE IV 250 ML IV SCH ×2 (09:50→21:19)
[2019-12-08] MEDS: PANTOPRAZOLE 40 MG/10 ML VIAL INJ IV SCH (09:51)
[2019-12-08] MEDS: CHOLECALCIFEROL (VITD3) 1,000IU=25mCg TAB PO SCH (09:51)
[2019-12-08] MEDS: ASCORBIC ACID 500 MG TAB PO SCH (09:51)
[2019-12-08] MEDS: ASPirin-EC 81 mg tab PO SCH (09:52)
[2019-12-08] MEDS: ENOXAPARIN SOD 40 MG/0.4 ML SYRINGE SC SCH (09:52)
[2019-12-08] MEDS: MUPIROCIN 2% OINT 15gm or 22gm EACHNOSTRI SCH ×2 (09:53→21:30)
[2019-12-08] MEDS: ASPirin 81 mg TAB PO SCH (10:05)
[2019-12-08] MEDS: AMIODARONE 450mg/250ml AE 250 ML IV SCH ×2 (12:38→22:48)
[2019-12-08] MEDS ORDERED: LIDOCAINE HCL 100 MG/5ML (2%) SYRG INJ IV ONE (13:37)
[2019-12-08] MEDS: MIDAZOLAM DRIP 50 mg/50mL 50 ML IV SCH (13:44)
[2019-12-08 14:02] LABS: Calcium 7.3 mg/dL (8.5-10.1); Magnesium 1.9 mg/dL (1.6-2.6); Potassium 4.1 mmol/L (3.5-5.1)
[2019-12-08 14:04] LABS: BUN/Creatinine Ratio 33.3
[2019-12-08] MEDS: PROPOFOL 100 ML IV SCH (14:37)
[2019-12-08] MEDS: fentaNYL Drip 2500mCg/250mlNS 250 ML IV SCH (15:08)
[2019-12-08] MEDS ORDERED: TPN PER PHARMACY IV NR ×9 (20:00)
[2019-12-08] MEDS: ATORVASTATIN 20 MG TAB PO SCH (21:30)
[2019-12-08] MEDS: NOREPINEPHRINE BITARTRATE 16 MG in SODIUM CHL 0.9% 250 ML IV SCH (22:53)
[2019-12-09] VITALS (104 sets, daily range): BP systolic 86–134; BP diastolic 51–83
[2019-12-09] MEDS: ACCU-CHEK COMFORT CURVE STRIP VI SCH ×4 (00:20→17:09)
[2019-12-09] MEDS: InsuLIN REG 1unit/0.01ml Soln (100units/ml) SC SCH ×4 (00:23→17:29)
[2019-12-09] MEDS: MEROPENEM 1GM IVPB 100 ML IV SCH ×2 (01:36→11:18)
[2019-12-09] MEDS: PHENYLEPHRINE IV 250 ML IV SCH ×2 (05:39→11:59)
[2019-12-09] MEDS: FUROSEMIDE 20 MG/2 ML VIAL IV SCH ×2 (06:21→17:09)
[2019-12-09 06:32] LABS: Basophils # (auto) 0.1 10 ^3/uL (0-0.2); Basophils % (auto) 0.7 % (0.0-2.0); Eosinophils # (auto) 0.3 10 ^3/uL (0-0.8); Eosinophils % (auto) 2.6 % (0.0-7.0); Hematocrit 34.2 % (36.0-46.0); Hemoglobin 11.3 g/dL (12.2-16.2); Lymphocytes # (auto) 1.3 10 ^3/uL (0.4-5.4); Lymphocytes % (auto) 11.5 % (10.0-50.0); Mean Corpuscular Hemoglobin 29.3 pg (28.0-32.0); Mean Corpuscular Hgb Conc. 33.1 g/dL (32.0-36.0); Mean Corpuscular Volume 88.5 fL (80.0-100.0); Monocytes # (auto) 1.1 10 ^3/uL (0-1.3); Neutrophils # (auto) 8.4 10 ^3/uL (1.6-8.6); Neutrophils % (auto) 75.2 % (37.0-80.0); Platelet Count (auto) 224 10^3/uL (140-450); Red Blood Cells 3.87 10^6/uL (4.0-5.20); White Blood Cell 11.2 10^3/uL (4.4-10.8)
[2019-12-09] MEDS: IPRATROPIUM BROM 0.5 MG/2.5ML INH SOL NEB SCH ×3 (06:33→21:17)
[2019-12-09] MEDS: LEVALBUTEROL HCL 1.25 MG/3 ML NEB NEB SCH ×3 (06:33→21:17)
[2019-12-09 06:53] LABS: Albumin 1.3 g/dL (3.4-5.0); Calcium 7.9 mg/dL (8.5-10.1); Magnesium 2.1 mg/dL (1.6-2.6); Potassium 3.9 mmol/L (3.5-5.1)
[2019-12-09 06:56] LABS: BUN/Creatinine Ratio 32.6; Bilirubin, Total 1.6 mg/dL (0.2-1.0); Phosphorus 2.9 mg/dL (2.5-4.90); Total Protein 5.8 g/dL (6.4-8.2)
[2019-12-09] MEDS: ASPirin 81 mg TAB PO SCH (10:00)
[2019-12-09] MEDS: PANTOPRAZOLE 40 MG/10 ML VIAL INJ IV SCH (10:00)
[2019-12-09] MEDS: CHOLECALCIFEROL (VITD3) 1,000IU=25mCg TAB PO SCH (10:00)
[2019-12-09] MEDS: ASCORBIC ACID 500 MG TAB PO SCH (10:00)
[2019-12-09] MEDS: VANCOMYCIN 1GM/250ML 250 ML IV SCH (11:18)
[2019-12-09] MEDS: MUPIROCIN 2% OINT 15gm or 22gm EACHNOSTRI SCH ×2 (11:18→21:57)
[2019-12-09] MEDS: ENOXAPARIN SOD 40 MG/0.4 ML SYRINGE SC SCH (11:19)
[2019-12-09] MEDS: fentaNYL Drip 2500mCg/250mlNS 250 ML IV SCH ×2 (11:59→15:37)
[2019-12-09] MEDS: PROPOFOL 100 ML IV SCH ×3 (11:59→16:00)
[2019-12-09] MEDS: MIDAZOLAM DRIP 50 mg/50mL 50 ML IV SCH (11:59)
[2019-12-09] MEDS: AMIODARONE 450mg/250ml AE 250 ML IV SCH ×2 (12:00→13:17)
[2019-12-09] MEDS ORDERED: levoFLOXacin 750MG 150 ML IV ONE (12:30)
[2019-12-09] MEDS ORDERED: POTASSIUM EFFERVESENT TAB 25 MEQ GT ONE (12:30)
[2019-12-09] MEDS: TPN PER PHARMACY IV NR ×8 (19:56)
[2019-12-09] MEDS: ATORVASTATIN 20 MG TAB PO SCH (21:57)
[2019-12-10] VITALS (102 sets, daily range): BP systolic 78–113; BP diastolic 41–84
[2019-12-10] MEDS: ACCU-CHEK COMFORT CURVE STRIP VI SCH ×4 (00:12→18:45)
[2019-12-10] MEDS: InsuLIN REG 1unit/0.01ml Soln (100units/ml) SC SCH ×4 (00:12→18:45)
[2019-12-10 04:13] LABS: Basophils # (auto) 0.1 10 ^3/uL (0-0.2); Basophils % (auto) 0.8 % (0.0-2.0); Eosinophils # (auto) 0.2 10 ^3/uL (0-0.8); Eosinophils % (auto) 1.5 % (0.0-7.0); Hematocrit 34.9 % (36.0-46.0); Hemoglobin 11.7 g/dL (12.2-16.2); Lymphocytes % (auto) 13.8 % (10.0-50.0); Mean Corpuscular Hemoglobin 29.5 pg (28.0-32.0); Mean Corpuscular Hgb Conc. 33.4 g/dL (32.0-36.0); Mean Corpuscular Volume 88.4 fL (80.0-100.0); Monocytes # (auto) 1.2 10 ^3/uL (0-1.3); Monocytes % (auto) 8.5 % (0.0-12.0); Neutrophils # (auto) 10.7 10 ^3/uL (1.6-8.6); Neutrophils % (auto) 75.4 % (37.0-80.0); Nucleated Red Blood Cells % 0.1 %; Platelet Count (auto) 259 10^3/uL (140-450); Red Blood Cells 3.95 10^6/uL (4.0-5.20); Red Cell Distribution Width 15.7 % (11.8-14.3); White Blood Cell 14.2 10^3/uL (4.4-10.8)
[2019-12-10 04:27] LABS: Potassium 3.8 mmol/L (3.5-5.1)
[2019-12-10 04:29] LABS: INR 1.13 (0.9-1.15)
[2019-12-10 04:36] LABS: Albumin 1.5 g/dL (3.4-5.0); BUN/Creatinine Ratio 37.7; Bilirubin, Total 1.4 mg/dL (0.2-1.0); Calcium 8.2 mg/dL (8.5-10.1); Magnesium 2.3 mg/dL (1.6-2.6); Phosphorus 3.4 mg/dL (2.5-4.90)
[2019-12-10] MEDS: FUROSEMIDE 20 MG/2 ML VIAL IV SCH (05:49)
[2019-12-10] MEDS: IPRATROPIUM BROM 0.5 MG/2.5ML INH SOL NEB SCH ×4 (06:31→22:32)
[2019-12-10] MEDS: LEVALBUTEROL HCL 1.25 MG/3 ML NEB NEB SCH ×4 (06:31→22:32)
[2019-12-10] MEDS: ASCORBIC ACID 500 MG TAB PO SCH (10:29)
[2019-12-10] MEDS: MUPIROCIN 2% OINT 15gm or 22gm EACHNOSTRI SCH ×2 (10:29→21:01)
[2019-12-10] MEDS: ASPirin 81 mg TAB PO SCH (10:29)
[2019-12-10] MEDS: ENOXAPARIN SOD 40 MG/0.4 ML SYRINGE SC SCH (10:29)
[2019-12-10] MEDS: PANTOPRAZOLE 40 MG/10 ML VIAL INJ IV SCH (10:29)
[2019-12-10] MEDS: levoFLOXacin 750MG 150 ML IV SCH (10:29)
[2019-12-10] MEDS: POTASSIUM EFFERVESENT TAB 25 MEQ GT SCH (10:30)
[2019-12-10] MEDS ORDERED: VANCOMYCIN 1GM/250ML 250 ML IV SCH (11:00)
[2019-12-10] MEDS ORDERED: AMIODARONE HCL 200 MG TAB NG ONE (14:00)
[2019-12-10] MEDS: fentaNYL Drip 2500mCg/250mlNS 250 ML IV SCH (18:00)
[2019-12-10] MEDS: NOREPINEPHRINE BITARTRATE 16 MG in SODIUM CHL 0.9% 250 ML IV SCH (18:00)
[2019-12-10] MEDS: FUROSEMIDE 100 MG/10ML VIAL IV SCH (18:00)
[2019-12-10] MEDS ORDERED: TPN PER PHARMACY IV NR ×10 (20:00)
[2019-12-10] MEDS: TPN PER PHARMACY IV NR ×8 (20:08)
[2019-12-10] MEDS: ATORVASTATIN 20 MG TAB PO SCH (21:03)
[2019-12-10] MEDS: AMIODARONE HCL 200 MG TAB NG SCH (21:03)
[2019-12-10] MEDS: AMIODARONE 450mg/250ml AE 250 ML IV SCH (21:03)
[2019-12-11] VITALS (96 sets, daily range): BP systolic 71–129; BP diastolic 29–81
[2019-12-11] MEDS: ACCU-CHEK COMFORT CURVE STRIP VI SCH ×3 (00:07→12:00)
[2019-12-11 03:53] LABS: Hematocrit 36.2 % (36.0-46.0); Hemoglobin 11.7 g/dL (12.2-16.2); Mean Corpuscular Hemoglobin 28.9 pg (28.0-32.0); Mean Corpuscular Hgb Conc. 32.2 g/dL (32.0-36.0); Mean Corpuscular Volume 89.7 fL (80.0-100.0); Platelet Count (auto) 349 10^3/uL (140-450); Red Blood Cells 4.04 10^6/uL (4.0-5.20); Red Cell Distribution Width 15.8 % (11.8-14.3); White Blood Cell 12.7 10^3/uL (4.4-10.8)
[2019-12-11 04:11] LABS: Basophils % (manual) 0 (0.0-2.0); Blast Cells 0; Metamyelocytes % 0; Myelocytes % 0; Promyelocytes % 0; Reactive Lymphocytes 0
[2019-12-11 04:54] LABS: Band Neutrophils % (manual) 1; Eosinophils % (manual) 5 (0-7); Lymphocytes % (manual) 23 (10.0-50.0); Monocytes % (manual) 11 (0-12)
[2019-12-11 05:19] LABS: Albumin 1.7 g/dL (3.4-5.0); BUN/Creatinine Ratio 44.1; Calcium 8.3 mg/dL (8.5-10.1); Magnesium 2.1 mg/dL (1.6-2.6); Potassium 4.4 mmol/L (3.5-5.1)
[2019-12-11 05:22] LABS: Phosphorus 4.4 mg/dL (2.5-4.90); Total Protein 6.3 g/dL (6.4-8.2)
[2019-12-11 05:57] LABS: Pre Albumin 17.3 mg/dL (20.0-40.0)
[2019-12-11] MEDS: InsuLIN REG 1unit/0.01ml Soln (100units/ml) SC SCH ×3 (06:00→12:00)
[2019-12-11] MEDS: LEVALBUTEROL HCL 1.25 MG/3 ML NEB NEB SCH ×3 (06:07→22:21)
[2019-12-11] MEDS: IPRATROPIUM BROM 0.5 MG/2.5ML INH SOL NEB SCH ×3 (06:07→22:21)
[2019-12-11] MEDS: FUROSEMIDE 100 MG/10ML VIAL IV SCH ×2 (06:18→18:00)
[2019-12-11] MEDS: PROPOFOL 100 ML IV SCH (06:35)
[2019-12-11] MEDS ORDERED: DexMEDEtomidine 400 MCG in D5W 5% 96 ML IV SCH (09:27)
[2019-12-11] MEDS: MUPIROCIN 2% OINT 15gm or 22gm EACHNOSTRI SCH ×2 (10:52→22:25)
[2019-12-11] MEDS: POTASSIUM EFFERVESENT TAB 25 MEQ GT SCH (10:52)
[2019-12-11] MEDS: AMIODARONE HCL 200 MG TAB NG SCH ×2 (10:53→22:25)
[2019-12-11] MEDS: PANTOPRAZOLE 40 MG/10 ML VIAL INJ IV SCH (10:53)
[2019-12-11] MEDS: levoFLOXacin 750MG 150 ML IV SCH (10:53)
[2019-12-11] MEDS: ASCORBIC ACID 500 MG TAB PO SCH (10:54)
[2019-12-11] MEDS: ASPirin 81 mg TAB PO SCH (10:54)
[2019-12-11] MEDS: ENOXAPARIN SOD 40 MG/0.4 ML SYRINGE SC SCH (10:54)
[2019-12-11] MEDS: AMIODARONE 450mg/250ml AE 250 ML IV SCH (13:25)
[2019-12-11] MEDS: NOREPINEPHRINE BITARTRATE 16 MG in SODIUM CHL 0.9% 250 ML IV SCH (16:46)
[2019-12-11] MEDS ORDERED: TPN PER PHARMACY IV NR ×8 (20:00)
[2019-12-11] MEDS ORDERED: ALBUMIN 5% 250 ML IV ONE (22:15)
[2019-12-11] MEDS: ATORVASTATIN 20 MG TAB PO SCH (22:25)
[2019-12-12] VITALS (86 sets, daily range): BP systolic 64–125; BP diastolic 29–75
[2019-12-12] MEDS: IPRATROPIUM BROM 0.5 MG/2.5ML INH SOL NEB SCH ×3 (06:27→22:11)
[2019-12-12] MEDS: LEVALBUTEROL HCL 1.25 MG/3 ML NEB NEB SCH ×3 (06:27→22:11)
[2019-12-12] MEDS: FUROSEMIDE 100 MG/10ML VIAL IV SCH ×2 (06:31→18:04)
[2019-12-12] MEDS ORDERED: DIGOXIN (250MCG/ML) 2 ML AMPULE IV ONE ×2 (08:45→09:15)
[2019-12-12] MEDS: ASCORBIC ACID 500 MG TAB PO SCH (09:17)
[2019-12-12] MEDS: ASPirin 81 mg TAB PO SCH (09:17)
[2019-12-12] MEDS: ENOXAPARIN SOD 40 MG/0.4 ML SYRINGE SC SCH (09:17)
[2019-12-12] MEDS: AMIODARONE HCL 200 MG TAB NG SCH ×2 (09:17→21:00)
[2019-12-12] MEDS: MUPIROCIN 2% OINT 15gm or 22gm EACHNOSTRI SCH (09:17)
[2019-12-12] MEDS: POTASSIUM EFFERVESENT TAB 25 MEQ GT SCH (09:17)
[2019-12-12 09:39] LABS: BUN/Creatinine Ratio 40.3; Calcium 8.8 mg/dL (8.5-10.1); Magnesium 2.1 mg/dL (1.6-2.6); Potassium 3.3 mmol/L (3.5-5.1)
[2019-12-12] MEDS: PANTOPRAZOLE 40 MG/10 ML VIAL INJ IV SCH (09:41)
[2019-12-12] MEDS: levoFLOXacin 750MG 150 ML IV SCH (09:42)
[2019-12-12] MEDS ORDERED: POTASSIUM CHL 20 Meq TABLET PO ONE (14:00)
[2019-12-12] MEDS: NOREPINEPHRINE BITARTRATE 16 MG in SODIUM CHL 0.9% 250 ML IV SCH (16:46)
[2019-12-12] MEDS ORDERED: LORazepam 2MG/ML-1ML VIAL IV PRN (18:30)
[2019-12-12] MEDS ORDERED: METOPROLOL SUCCINATE XL 50 MG TAB PO ONE (19:30)
[2019-12-12] MEDS: POTASSIUM CHL 20 Meq TABLET PO SCH (21:00)
[2019-12-12] MEDS: ATORVASTATIN 20 MG TAB PO SCH (21:01)
[2019-12-13] VITALS (43 sets, daily range): BP systolic 78–114; BP diastolic 44–80
[2019-12-13 03:36] LABS: Basophils # (auto) 0 10 ^3/uL (0-0.2); Basophils % (auto) 0.4 % (0.0-2.0); Eosinophils # (auto) 0.1 10 ^3/uL (0-0.8); Eosinophils % (auto) 1.1 % (0.0-7.0); Hematocrit 40.2 % (36.0-46.0); Hemoglobin 13.2 g/dL (12.2-16.2); Lymphocytes # (auto) 1.9 10 ^3/uL (0.4-5.4); Lymphocytes % (auto) 15.6 % (10.0-50.0); Mean Corpuscular Hemoglobin 28.9 pg (28.0-32.0); Mean Corpuscular Hgb Conc. 32.9 g/dL (32.0-36.0); Mean Corpuscular Volume 87.7 fL (80.0-100.0); Monocytes # (auto) 1.2 10 ^3/uL (0-1.3); Monocytes % (auto) 9.6 % (0.0-12.0); Neutrophils % (auto) 73.3 % (37.0-80.0); Platelet Count (auto) 404 10^3/uL (140-450); Red Blood Cells 4.58 10^6/uL (4.0-5.20); Red Cell Distribution Width 15.6 % (11.8-14.3); White Blood Cell 12.3 10^3/uL (4.4-10.8)
[2019-12-13 03:54] LABS: Albumin 2.3 g/dL (3.4-5.0)
[2019-12-13 03:57] LABS: BUN/Creatinine Ratio 46.5; Bilirubin, Total 1.3 mg/dL (0.2-1.0); Total Protein 7.2 g/dL (6.4-8.2)
[2019-12-13] MEDS: FUROSEMIDE 100 MG/10ML VIAL IV SCH ×2 (06:24→18:00)
[2019-12-13] MEDS: LEVALBUTEROL HCL 1.25 MG/3 ML NEB NEB SCH ×3 (06:39→22:06)
[2019-12-13] MEDS: IPRATROPIUM BROM 0.5 MG/2.5ML INH SOL NEB SCH ×3 (06:39→22:06)
[2019-12-13] MEDS: ENOXAPARIN SOD 40 MG/0.4 ML SYRINGE SC SCH (10:34)
[2019-12-13] MEDS: PANTOPRAZOLE 40 MG/10 ML VIAL INJ IV SCH (10:34)
[2019-12-13] MEDS: levoFLOXacin 750MG 150 ML IV SCH (10:34)
[2019-12-13] MEDS: METOPROLOL SUCCINATE XL 50 MG TAB PO SCH (10:35)
[2019-12-13] MEDS: POTASSIUM CHL 20 Meq TABLET PO SCH ×2 (10:35→22:00)
[2019-12-13] MEDS: AMIODARONE HCL 200 MG TAB NG SCH ×2 (10:35→22:00)
[2019-12-13] MEDS: ASPirin 81 mg TAB PO SCH (10:35)
[2019-12-13] MEDS: ASCORBIC ACID 500 MG TAB PO SCH (10:35)
[2019-12-13] MEDS ORDERED: SODIUM CHLORIDE 0.9% 1,000 ML IV SCH (13:00)
[2019-12-13] MEDS ORDERED: SODIUM CHLORIDE 0.9% 250 ML IV ONE (14:15)
[2019-12-13] MEDS: ATORVASTATIN 20 MG TAB PO SCH (22:00)
[2019-12-14] VITALS (9 sets, daily range): BP systolic 86–98; BP diastolic 41–57
[2019-12-14] MEDS: FUROSEMIDE 100 MG/10ML VIAL IV SCH (06:00)
[2019-12-14] MEDS: LEVALBUTEROL HCL 1.25 MG/3 ML NEB NEB SCH ×2 (06:51→14:00)
[2019-12-14] MEDS: IPRATROPIUM BROM 0.5 MG/2.5ML INH SOL NEB SCH ×2 (06:51→14:00)
[2019-12-14] MEDS: levoFLOXacin 750MG 150 ML IV SCH (09:42)
[2019-12-14] MEDS: AMIODARONE HCL 200 MG TAB NG SCH (09:43)
[2019-12-14] MEDS: ENOXAPARIN SOD 40 MG/0.4 ML SYRINGE SC SCH (09:43)
[2019-12-14] MEDS: PANTOPRAZOLE 40 MG/10 ML VIAL INJ IV SCH (09:43)
[2019-12-14] MEDS: ASPirin 81 mg TAB PO SCH (09:43)
[2019-12-14] MEDS: POTASSIUM CHL 20 Meq TABLET PO SCH (09:43)
[2019-12-14] MEDS: ASCORBIC ACID 500 MG TAB PO SCH (09:43)
[2019-12-14] MEDS: METOPROLOL SUCCINATE XL 50 MG TAB PO SCH (09:55)
== END 2019-12-14 17:00 | disposition left against medical advice (07) | DRG 720 ==
LOC: EDBD 12:30 → ER 12:30 → OVERFLOW 12:31 → ICU WEST 12-03 04:28 → DOU IN ICU 12-12 00:10 → TELE-WESTW 12-14 14:18
PROVIDERS: ADMIT Nurse Practitioner Acute Care; ATTEND Internal Medicine
PROC: 5A1955Z Respiratory Ventilation, Greater than 96 Consecutive Hours (ICD-10-PCS; principal; 2019-12-02)
PROC: 0BH17EZ Insertion of Endotracheal Airway into Trachea, Via Natural or Artificial Opening (ICD-10-PCS; 2019-12-02)
PROC: 02HV33Z Insertion of Infusion Device into Superior Vena Cava, Percutaneous Approach (ICD-10-PCS; 2019-12-02)
DX: A41.9 Sepsis, unspecified organism (principal); I21.A1 Myocardial infarction type 2; I49.01 Ventricular fibrillation; J69.0 Pneumonitis due to inhalation of food and vomit; K72.00 Acute and subacute hepatic failure without coma; E43 Unspecified severe protein-calorie malnutrition; J96.01 Acute respiratory failure with hypoxia; G93.1 Anoxic brain damage, not elsewhere classified; D68.59 Other primary thrombophilia; E11.22 Type 2 diabetes mellitus with diabetic chronic kidney disease; R57.0 Cardiogenic shock; R65.21 Severe sepsis with septic shock; I47.2 Ventricular tachycardia; I50.43 Acute on chronic combined systolic (congestive) and diastolic (congestive) heart failure; I48.91 Unspecified atrial fibrillation; J44.1 Chronic obstructive pulmonary disease with (acute) exacerbation; I48.0 Paroxysmal atrial fibrillation; J98.11 Atelectasis; E11.65 Type 2 diabetes mellitus with hyperglycemia; E78.5 Hyperlipidemia, unspecified; E83.42 Hypomagnesemia; E87.1 Hypo-osmolality and hyponatremia; E87.6 Hypokalemia; I13.0 Hypertensive heart and chronic kidney disease with heart failure and stage 1 through stage 4 chronic kidney disease, or unspecified chronic kidney disease; N18.9 Chronic kidney disease, unspecified; I42.0 Dilated cardiomyopathy; J96.21 Acute and chronic respiratory failure with hypoxia; G93.41 Metabolic encephalopathy; E87.2 Acidosis; J45.909 Unspecified asthma, uncomplicated; F17.210 Nicotine dependence, cigarettes, uncomplicated; I25.2 Old myocardial infarction; Z03.818 Encounter for observation for suspected exposure to other biological agents ruled out; Z99.11 Dependence on respirator [ventilator] status; Z68.23 Body mass index [BMI] 23.0-23.9, adult; Z16.11 Resistance to penicillins
CPT/HCPCS: 31500; 36415; 36600; 51702; 70450; 70551; 71045; 71260; 74177; 76705; 80048; 80053; 80061; 80202; 80307; 81001; 82040; 82728; 82805; 82962; 83036; 83605; 83615; 83735; 83880; 84100; 84132; 84443; 84478; 84484; 84702; 85007; 85025; 85027; 85379; 85610; 85730; 86141; 86704; 86706; 86708; 86803; 87040; 87070; 87077; 87081; 87186; 87205; 87340; 87804; 87880; 92610; 93005; 93306; 93886; 94002; 94003; 94640; 95819; 97116; 97163; 97530; 99291; C9113; G0378; J0153; J0171; J0330; J0696; J1815; J1956; J2185; J2250; J2704; J3480; J7060; J7131

== ENCOUNTER 2020-05-18 00:44 | Inpatient (IN) | payer MEDICAID, SELFPAY ==
[~2020-05-18] VITALS: Ht 162.6 cm; Wt 49.9 kg
[~2020-05-18 00:44] MED LIST: AMIO200T33 PO; ATOR20TA50 PO; CLOP75TA28 PO; ENAL2.5T11 PO; FURO40TA4 PO; GLIP5TAB12 PO; IPRAAER6 IN; METO25TA93 PO; NITR0.4S29 SL; PANT40TA2 PO; POTA-220 PO
[2020-05-18] MEDS ORDERED: DexAMETHasone SOD PHOS 10MG/1ML VIAL INJ IV ONE (01:00)
[2020-05-18 01:40] LABS: Eosinophils # (auto) 0 10 ^3/uL (0-0.8); Eosinophils % (auto) 0.1 % (0.0-7.0); Neutrophils # (auto) 17.6 10 ^3/uL (1.6-8.6); Platelet Count (auto) 188 10^3/uL (140-450); Red Cell Distribution Width 18.3 % (11.8-14.3); White Blood Cell 23.3 10^3/uL (4.4-10.8)
[2020-05-18 01:41] LABS: Basophils # (auto) 0.2 10 ^3/uL (0-0.2); Basophils % (auto) 0.8 % (0.0-2.0); Hematocrit 40.9 % (36.0-46.0); Lymphocytes # (auto) 3.4 10 ^3/uL (0.4-5.4); Lymphocytes % (auto) 14.7 % (10.0-50.0); Mean Corpuscular Hemoglobin 26.4 pg (28.0-32.0); Mean Corpuscular Hgb Conc. 31.9 g/dL (32.0-36.0); Mean Corpuscular Volume 82.8 fL (80.0-100.0); Monocytes # (auto) 2.1 10 ^3/uL (0-1.3); Neutrophils % (auto) 75.4 % (37.0-80.0); Nucleated Red Blood Cells % 0.2 %; Red Blood Cells 4.94 10^6/uL (4.0-5.20)
[2020-05-18 02:09] LABS: Albumin 2.6 g/dL (3.4-5.0); Calcium 8.1 mg/dL (8.5-10.1); Magnesium 1.9 mg/dL (1.6-2.6); Potassium 4.3 mmol/L (3.5-5.1)
[2020-05-18 02:13] LABS: Bilirubin, Total 1.4 mg/dL (0.2-1.0); Total Protein 6.7 g/dL (6.4-8.2)
[2020-05-18] MEDS ORDERED: SODIUM CHLORIDE 0.9% 1,000 ML IV ONE (02:30)
[2020-05-18 02:43] LABS: INR 1.3 (0.9-1.15); Partial Thromboplastin Time 29.6 sec (23.0-31.2)
[2020-05-18 03:22] LABS: Urine WBC None Seen /hpf (0 - 5)
[2020-05-18 03:44] LABS: Urine Amorphous Crystal MANY /hpf (None Seen); Urine Bacteria FEW /hpf (None Seen); Urine Blood Negative /uL (Negative); Urine Mucus FEW (None Seen); Urine Specific Gravity 1.025 (1.001-1.035)
[2020-05-18 03:51] LABS: Alcohol, Urine < 3.0 mg/dL (0-10); Amphetamine Screen, Urine POSITIVE (NEGATIVE); Barbiturate Scree,Urine NEGATIVE (NEGATIVE); Benzodiazephine Screen, Urine NEGATIVE (NEGATIVE); Cannabinoid Screen, Urine NEGATIVE (NEGATIVE); Cocaine Screen, Urine NEGATIVE (NEGATIVE); Phencyclidine Screen, Urine NEGATIVE (NEGATIVE)
[2020-05-18 03:58] LABS: Opiate Scree,Urine NEGATIVE (NEGATIVE)
[2020-05-18] MEDS ORDERED: DOXYCYCLINE 100MG/250ML 250 ML IV ONE (04:30)
[2020-05-18] MEDS ORDERED: IOHEXOL 350 MG/ML 100ML IJ ONE (04:34)
[2020-05-18] MEDS ORDERED: FUROSEMIDE 20 MG/2 ML VIAL IV ONE (05:15)
[2020-05-18] MEDS ORDERED: ACETAMINOPHEN 325 MG TAB PO PRN (05:15)
[2020-05-18] MEDS ORDERED: MORPHINE SULF INJ 2 MG/ML SYRINGE 1ML IV PRN (05:15)
[2020-05-18] MEDS ORDERED: NITROGLYCERIN 0.4 MG SL TAB SL PRN (05:15)
[2020-05-18] MEDS ORDERED: TEMAZEPAM 15 MG CAP PO PRN (05:15)
[2020-05-18] MEDS ORDERED: ONDANSETRON HCL 4 MG/2 ML VIAL IV PRN (05:15)
[2020-05-18] MEDS ORDERED: ALBUTEROL SULF HFA 90MCG INH 200DOSE IN SCH (06:00)
[2020-05-18] MEDS ORDERED: FUROSEMIDE 20 MG/2 ML VIAL IV SCH (06:00)
[2020-05-18] MEDS ORDERED: ADENOSINE 6 MG/2 ML INJ IV ONE ×3 (06:26→07:15)
[2020-05-18] MEDS ORDERED: AMIODARONE HCL (50 MG/ ML) 3 ML VIAL IV ONE (06:33)
[2020-05-18] MEDS ORDERED: AMIODARONE 450mg/250ml AE 250 ML IV ONE (06:34)
[2020-05-18 07:00] VITALS: BP 120/87
[2020-05-18] MEDS ORDERED: ALBUTEROL SULF 2.5 MG/0.5ML(0.5%) NEB SOLN NEB PRN (07:00)
[2020-05-18] MEDS ORDERED: AMIODARONE 450mg/250ml AE 250 ML IV SCH ×4 (07:02→13:19)
[2020-05-18] MEDS ORDERED: AMIODARONE HCL 150 MG in D5W 5% 100 ML IV ONE (07:15)
[2020-05-18] MEDS ORDERED: DOXYCYCLINE 100MG/250ML 250 ML IV SCH (10:00)
[2020-05-18] MEDS ORDERED: DexAMETHasone SOD PHOS 10MG/1ML VIAL INJ IV SCH (10:00)
[2020-05-18] MEDS ORDERED: ENOXAPARIN SOD 40 MG/0.4 ML SYRINGE SC SCH ×2 (10:00)
[2020-05-18] MEDS ORDERED: FAMOTIDINE 20 MG TAB PO SCH (10:00)
[2020-05-18] MEDS ORDERED: CHOLECALCIFEROL (VITD3) 2,000 UNIT CAP PO SCH (10:00)
[2020-05-18] MEDS ORDERED: ASCORBIC ACID 1,000 MG TAB PO SCH (10:00)
[2020-05-18] MEDS ORDERED: ZINC SULFATE 220mg CAP or TAB PO SCH (10:00)
== END 2020-05-18 08:03 | disposition left against medical advice (07) | DRG 133 ==
LOC: EDBD 00:44 → ER 00:46 → TELE 00:47
PROVIDERS: ADMIT Nurse Practitioner; ATTEND Internal Medicine
DX: J96.20 Acute and chronic respiratory failure, unspecified whether with hypoxia or hypercapnia (principal); J18.9 Pneumonia, unspecified organism; I42.0 Dilated cardiomyopathy; I48.91 Unspecified atrial fibrillation; J44.9 Chronic obstructive pulmonary disease, unspecified; D72.829 Elevated white blood cell count, unspecified; F17.210 Nicotine dependence, cigarettes, uncomplicated; J98.11 Atelectasis; E11.9 Type 2 diabetes mellitus without complications; F15.10 Other stimulant abuse, uncomplicated; I50.9 Heart failure, unspecified; Z20.828 Contact with and (suspected) exposure to other viral communicable diseases
CPT/HCPCS: 36415; 36600; 71045; 80053; 80307; 80320; 81001; 82728; 82805; 83605; 83735; 83880; 84484; 85025; 85379; 85610; 85730; 87040; 87426; 93005; 96361; 96365; 96367; 96368; 96375; G0378; J0153; J1100; J3490; J7060